=== PATIENT | male | born 1975 | race Caucasian/White ===

== ENCOUNTER 2018-08-29 16:00 | Emergency (ER) | payer OTHER ==
[~2018-08-29] VITALS: Ht 185.4 cm; Wt 97.5 kg
[2018-08-29] MEDS ORDERED: RAMIPRIL1.25 MG (16:04)
[2018-08-29] MEDS ORDERED: INTESTINEX680 M1 PO (23:18)
== END 2018-08-30 00:24 | disposition home or self-care (01) ==
LOC: ER 16:00
DX: R10.31 Right lower quadrant pain (principal)